=== PATIENT | male | born 1985 | race Caucasian/White ===

== ENCOUNTER 2018-05-19 02:38 | Emergency (ER) | payer OTHER ==
[2018-05-19] MEDS ORDERED: TETRACAINE HCL 0.5 % 1 DROP SOL EACHEYE ONE (02:56)
[2018-05-19] MEDS: PROPARACAINE HCL 0.5% OPHTHALMIC SOL OP ONE ×2 (02:56)
[2018-05-19] MEDS ORDERED: TETRACAINE HCL 0.5 % 1 DROP SOL ONE (03:00)
[2018-05-19] MEDS ORDERED: SODIUM CHLORIDE 0.9% FLUSH 10 ML SOL IV PRN (03:04)
[2018-05-19] MEDS ORDERED: OXYCODONE HYDROCHLORIDE 5 MG TAB PO PRN (03:12)
[2018-05-19] MEDS ORDERED: ERYTHROMYCIN OPTHAL 1 GM TUBE OP SCH (03:15)
[2018-05-19] MEDS ORDERED: ERYTHROMYCIN OPTHAL 1 GM TUBE ONE (03:24)
[2018-05-19] MEDS ORDERED: OXYCODONE HYDROCHLORIDE 5 MG TAB ONE (03:28)
[2018-05-19 04:34] VITALS: TEMP 97
[2018-05-19 04:44] VITALS: BP 128/78; PULSE 80; RESP 18; O2SAT 99
== END 2018-05-19 03:40 | disposition home or self-care (01) | DRG 125 ==
LOC: ED 02:38
DX: H16.133 Photokeratitis, bilateral (principal); W89.8XXA Exposure to other man-made visible and ultraviolet light, initial encounter
CPT/HCPCS: 99282; A6402; A9270-GY

== ENCOUNTER 2018-11-01 10:15 | Emergency (ER) | payer OTHER ==
[2018-11-01 10:45] LABS: BASOPHILS % (AUTO) 1 % (0-3); EOSINOPHILS % (AUTO) 1 % (0-9); HEMATOCRIT 52 % (39-53); LYMPHOCYTES % (AUTO) 17.2 % (10-50); MEAN CORPUSCULAR HEMOGLOBIN 27.8 pg (27.0-32.0); MEAN CORPUSCULAR VOLUME 84 fL (80-100); MONOCYTES % (AUTO) 4.8 % (0-12); NEUTROPHILS % (AUTO) 75.9 % (37-80)
[2018-11-01] MEDS: SODIUM CHLORIDE 0.9% 1000ML 1,000 ML IV SCH ×2 (10:50→11:30)
[2018-11-01 10:54] VITALS: TEMP 96.2
[2018-11-01 10:56] VITALS: O2SAT 98
[2018-11-01] MEDS ORDERED: SODIUM CHLORIDE 0.9% FLUSH 10 ML SOL IV PRN (10:56)
[2018-11-01 10:58] LABS: ALBUMIN 4.1 gm/dl (3.4-5.0); BILIRUBIN,DIRECT 0.1 mg/dl (0.0-0.2); BILIRUBIN,TOTAL 0.4 mg/dl (0.2-1.0); CALCIUM 9.1 mg/dl (8.5-10.1); CARBON DIOXIDE 25.9 mEq/L (21-32); CREATININE 0.73 mg/dl (0.80-1.30); TOTAL PROTEIN 7.9 gm/dl (6.4-8.2)
[2018-11-01] MEDS ORDERED: ALUMINUM/MAGNESIUM 30 ML SUS PO ONE (11:35)
[2018-11-01] MEDS ORDERED: KETOROLAC TROMETHAMINE 30 MG/ML SOL IV ONE (11:36)
[2018-11-01] MEDS ORDERED: PANTOPRAZOLE SODIUM 40 MG VIAL 80 MG in SODIUM CHLORIDE 0.9% 100 ML 80 ML IV ONE (11:37)
[2018-11-01] MEDS ORDERED: PANTOPRAZOLE SODIUM 40 MG/10 ML PDS IV ONE (11:38)
[2018-11-01] MEDS ORDERED: ALUMINUM/MAGNESIUM 30 ML SUS ONE (11:40)
[2018-11-01] MEDS ORDERED: KETOROLAC TROMETHAMINE 30 MG/ML SOL ONE (11:40)
[2018-11-01] MEDS ORDERED: PANTOPRAZOLE SODIUM 40 MG/10 ML PDS ONE (12:01)
[2018-11-01 12:59] VITALS: BP 132/86; PULSE 58; RESP 14
== END 2018-11-01 13:32 | disposition home or self-care (01) | DRG 392 ==
LOC: ED 10:15
DX: R10.13 Epigastric pain (principal); K21.9 Gastro-esophageal reflux disease without esophagitis; K22.70 Barrett's esophagus without dysplasia; K59.01 Slow transit constipation; E03.9 Hypothyroidism, unspecified
CPT/HCPCS: 71046; 74177; 80053; 80076; 83690; 85025; 93005; 96365; 96374; 96375; 99284; 99285; J1885; Q9967; A9270-GY